=== PATIENT | female | born 1980 | race Asian ===

== ENCOUNTER 2017-01-26 12:33 | Day surgery (SDC) | END 2017-01-26 19:25 | disposition home or self-care (01) | DX: O03.4 Incomplete spontaneous abortion without complication (principal); I10 Essential (primary) hypertension; E11.9 Type 2 diabetes mellitus without complications | CPT/HCPCS: 36415; 59812; 76801; 76817; 81001; 82962; 84702; 85025; 86900; 86901; 88305; 99285; J0690; J1885; J2250; J2405; J2765; J3010; J7030 ==

== ENCOUNTER 2017-11-09 12:25 | Emergency (ER) | END 2017-11-09 14:57 | disposition home or self-care (01) ==